=== PATIENT | male | born 1980 | race American Indian/Alaskan Native ===

== ENCOUNTER 2018-01-12 12:04 | Emergency (ER) | payer OTHER ==
[2018-01-12 12:31] VITALS: BP 143/83
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
[2018-01-12] MEDS ORDERED: MOTRIN PO ONE (13:26)
--- NOTE | 2018-01-12 15:24 | XRay Report ---
FINAL REPORT EXAM: XR KNEE 3V RT HISTORY: right knee pain TECHNIQUE: Three views of the right knee. PRIORS: None. FINDINGS: No fracture. No dislocation. Normal mineralization. No soft tissue abnormality. No joint effusion. No degenerative change. IMPRESSION: No acute right knee abnormality.
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
== END 2018-01-12 15:54 | disposition home or self-care (01) ==
LOC: ED 12:04
DX: S13.4XXA Sprain of ligaments of cervical spine, initial encounter (principal); S39.012A Strain of muscle, fascia and tendon of lower back, initial encounter; S86.911A Strain of unspecified muscle(s) and tendon(s) at lower leg level, right leg, initial encounter; F17.200 Nicotine dependence, unspecified, uncomplicated; V89.2XXA Person injured in unspecified motor-vehicle accident, traffic, initial encounter; Y93.89 Activity, other specified; Y92.89 Other specified places as the place of occurrence of the external cause; Y99.8 Other external cause status
CPT/HCPCS: 72100; 99283